=== PATIENT | male | born 1980 | race Caucasian/White ===

== ENCOUNTER 2016-10-05 20:45 | Emergency (ER) | payer MEDICAID ==
[~2016-10-05] VITALS: Ht 190.5 cm; Wt 83.6 kg
[2016-10-05 20:55] VITALS: BP 125/78
[2016-10-05] MEDS ORDERED: ONDANSETRON ODT 4 MG PO ONE (21:30)
[2016-10-05] MEDS ORDERED: MAALOX/HYOSCYAMINE/LIDOCAINE 45 ML BTL PO ONE (21:30)
[2016-10-05] MEDS ORDERED: ONDANSETRON ODT 4 MG ONE (21:38)
[2016-10-05] MEDS ORDERED: MAALOX/HYOSCYAMINE/LIDOCAINE 45 ML BTL ONE (21:38)
[2016-10-05 21:44] LABS: HEMATOCRIT 44.2 % (39.2-51.8); HEMOGLOBIN 14.7 g/dL (13.7-18.0); WHITE BLOOD COUNT 9.2 x10^3/uL (3.4-10)
[2016-10-05 21:57] LABS: ASPARTATE AMINO TRANSFERASE 13 U/L (15-37); BLOOD UREA NITROGEN 8 mg/dL (7-18)
== END 2016-10-05 22:53 | disposition home or self-care (01) ==
LOC: ED 22:00
DX: K29.00 Acute gastritis without bleeding (principal); Z87.891 Personal history of nicotine dependence
CPT/HCPCS: 36415; 80053; 81003; 83690; 85025; 86677; 99284; Q0162